=== PATIENT | female | born 2000 | race Two or more races ===

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

== ENCOUNTER 2019-06-14 13:50 | Outpatient (CLI) | payer OTHER | END 2019-06-14 13:56 | disposition home or self-care (01) | LOC: EKG 13:50 | DX: R00.2 Palpitations (principal) ==

== ENCOUNTER 2020-10-22 23:05 | Emergency (ER) | payer OTHER ==
[~2020-10-22] VITALS: Ht 175.3 cm; Wt 99.8 kg
[2020-10-23] MEDS ORDERED: DICLOFENAC SODI75 MG PO (01:14)
[2020-10-23] MEDS ORDERED: SKELAXIN800 MG PO (01:14)
[2020-10-23] MEDS ORDERED: NASAL MIST126 ML (01:18)
== END 2020-10-23 01:23 | disposition home or self-care (01) ==
LOC: ER 23:05
DX: S13.4XXA Sprain of ligaments of cervical spine, initial encounter (principal); M62.838 Other muscle spasm; V49.9XXA Car occupant (driver) (passenger) injured in unspecified traffic accident, initial encounter; Y93.89 Activity, other specified; Y92.488 Other paved roadways as the place of occurrence of the external cause; Y99.8 Other external cause status

== ENCOUNTER → 2021-08-14 | Emergency (ER) | payer OTHER ==
[~2021-08-14] VITALS: Ht 175.3 cm; Wt 113.4 kg
[~2021-08-14] MED LIST: AUROVELA PO; DICLOFENAC SODI75 MG PO; NASAL MIST126 ML; SKELAXIN800 MG PO
== END | disposition left against medical advice (07) ==
LOC: ER 13:50
DX: Z53.21 Procedure and treatment not carried out due to patient leaving prior to being seen by health care provider (principal)

== ENCOUNTER 2022-04-30 17:45 | Emergency (ER) | payer OTHER ==
[~2022-04-30] VITALS: Ht 175.3 cm; Wt 99.8 kg
== END 2022-04-30 19:03 | disposition home or self-care (01) ==
LOC: ER 17:45
DX: M62.830 Muscle spasm of back (principal); Z88.8 Allergy status to other drugs, medicaments and biological substances